=== PATIENT | male | born 1950 | race Caucasian/White ===

== ENCOUNTER 2020-11-22 07:10 | Emergency (ER) | payer OTHER ==
--- NOTE | 2020-11-22 07:44 | EDPHYS ---
Physician Documentation [facility] Name: Martinez Stoner Age: 69 yrs Sex: Male : 1950 Arrival Date: 11/22/2020 Time: 07:12 Bed 28 Private MD: ZBIGNIEW Physician Byron Lynne HPI: 11/22 07:35 This 69 yrs old Male presents to ER via Ambulatory with complaints of Wound jr8 Infection. 07:35 This is a 69-year-old male patient that presented to the emergency room for a draining jr8 wound to the right triceps region. Patient stated that he has had masslike structure to this area for several months. Started as a small nodule and has increased inside. Stated that every once in a while it will inflamed and drain. Stated that it started to drain again while at work and wanted it to be evaluated.. Onset: The symptoms/episode began/occurred gradually. Severity of symptoms: At their worst the symptoms were mild in the emergency department the symptoms are unchanged. The patient has experienced similar episodes in the past, a few times. The patient has not recently seen a physician. Historical: - Allergies: 07:14 Codeine; ll1 - PMHx: 07:14 Hepatitis; Hypertension; ll1 - Immunization history:: Adult Immunizations up to date, Client reports having NOT received the Covid vaccine. Flu vaccine is up to date. - Social history:: Smoking status: Patient denies any tobacco usage or history of. ROS: 07:35 Eyes: Negative for injury, pain, redness, and discharge, ENT: Negative for injury, jr8 pain, and discharge, Neck: Negative for injury, pain, and swelling, Cardiovascular: Negative for chest pain, palpitations, and edema, Respiratory: Negative for shortness of breath, cough, wheezing, and pleuritic chest pain, Abdomen/GI: Negative for abdominal pain, nausea, vomiting, diarrhea, and constipation, Back: Negative for injury and pain, MS/Extremity: Negative for injury and deformity, Neuro: Negative for headache, weakness, numbness, tingling, and seizure. 07:35 Skin: Positive for Erythematic swollen region right tricep. Exam: 07:38 Constitutional: This is a well developed, well nourished patient who is awake, alert, jr8 and in no acute distress. Cardiovascular: Regular rate and rhythm with a normal S1 and S2. No gallops, murmurs, or rubs. Normal PMI, no JVD. No pulse deficits. Respiratory: Lungs have equal breath sounds bilaterally, clear to auscultation and percussion. No rales, rhonchi or wheezes noted. No increased work of breathing, no retractions or nasal flaring. MS/ Extremity: Pulses equal, no cyanosis. Neurovascular intact. Full, normal range of motion. Neuro: Awake and alert, GCS 15, oriented to person, place, time, and situation. Cranial nerves II-XII grossly intact. Motor strength 5/5 in all extremities. Sensory grossly intact. Cerebellar exam normal. Normal gait. 07:38 Skin: Patient has slightly erythematic and ecchymotic masslike structure to the right triceps region with active mild draining. Serosanguineous in nature. No tenderness to palpation. No surrounding cellulitis noted.. Vital Signs: 07:19 BP 156 / 103; Pulse 74; Resp 18; Temp 97.6; Pulse Ox 94% on R/A; Weight 94.35 kg; ll1 Height 6 ft. 0 in. (182.88 cm); Pain 0/10; 08:01 BP 147 / 90; ll1 07:19 Body Mass Index 28.21 (94.35 kg, 182.88 cm) ll1 MDM: 07:15 Patient medically screened. [facility] 07:38 Data reviewed: vital signs, nurses notes. 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 ED course: Discussed with patient that this is not a typical abscess. That he has had this for several months and keeps getting inflamed. Most likely cystic in nature but cannot rule out neoplasm. Recommended follow-up with dermatology or general surgery for further evaluation. In the meantime we will put on antibiotics.. Administered Medications: No medications were administered Disposition: 11/23 07:27 Co-signature as Attending Physician, Byron Lynne MD I agree with the assessment and ty plan of care. Disposition Summary: 11/22/20 07:43 Discharge Ordered Location: Home jr8 Problem: new jr8 Symptoms: have improved jr8 Condition: Stable jr8 Diagnosis - Local infection of the skin and subcutaneous tissue, unspecified jr8 Followup: jr8 - With: Private Physician - When: 2 - 3 days - Reason: Recheck today's complaints, Continuance of care, Re-evaluation by your physician Discharge Instructions: - Discharge Summary Sheet jr8 - Skin Abscess jr8 Forms: - Medication Reconciliation Form jr8 - Thank You Letter jr8 - Work release form bd - Antibiotic Education jr8 - Prescription Opioid Use jr8 Prescriptions: - Bactrim DS 800-160 mg Oral Tablet - take 1 tablet by ORAL route every 12 hours for 7 days; 14 tablet; Refills: 0, jr8 Product Selection Permitted Signatures: Byron Lynne MD MD cha Roszak, Josh, PA PA jr8 Arley Day RN RN ll1
--- NOTE | 2020-11-22 07:44 | ER ---
Nurse's Notes [facility] Name: Martinez Stoner Age: 69 yrs Sex: Male : 1950 Arrival Date: 11/22/2020 Time: 07:12 Bed 28 Private MD: Diagnosis: Local infection of the skin and subcutaneous tissue, unspecified Presentation: 11/22 07:14 Ebola Screen: Patient denies travel to an Ebola-affected area in the 21 days before ll1 illness onset. No symptoms or risks identified at this time. Risk Assessment: Do you want to hurt yourself or someone else? Patient reports no desire to harm self or others. 07:14 Method Of Arrival: Ambulatory ll1 07:19 Chief complaint: Patient states: Abscess to R FA for 2 weeks, ongoing problem off/on ll1 for 1 year. No fever. Draining bloody pus. Coronavirus screen: Client denies travel out of the [place] in the last 14 days. At this time, the client does not indicate any symptoms associated with coronavirus-19. Initial Sepsis Screen: Does the patient meet any 2 criteria? No. Patient's initial sepsis screen is negative. Does the patient have a suspected source of infection? Yes: Skin breakdown/wound. Onset of symptoms was November 09, 2020. 07:19 Acuity: SHYLA 4 ll1 Triage Assessment: 08:01 General: Appears in no apparent distress. Behavior is calm, cooperative, appropriate ll1 for age. Pain: Denies pain. Derm: Abscess located on Right arm is dime sized, has purulent drainage, is raised, Reports sore R arm. Musculoskeletal: Circulation, motion, and sensation intact. Capillary refill < 3 seconds, Range of motion: intact in all extremities. Historical: - Allergies: 07:14 Codeine; ll1 - PMHx: 07:14 Hepatitis; Hypertension; ll1 - Immunization history:: Adult Immunizations up to date, Client reports having NOT received the Covid vaccine. Flu vaccine is up to date. - Social history:: Smoking status: Patient denies any tobacco usage or history of. Screenin:22 Abuse screen: Denies threats or abuse. Nutritional screening: No deficits noted. ll1 Tuberculosis screening: No symptoms or risk factors identified. 08:02 Fall Risk None identified. Total Cobb Fall Scale indicates No Risk (0-24 pts). ll1 Assessment: 08:03 Reassessment: No changes from previously documented assessment. Patient and/or family ll1 updated on plan of care and expected duration. Pain level reassessed. Patient is alert, oriented x 3, equal unlabored respirations, skin warm/dry/pink. Vital Signs: 07:19 BP 156 / 103; Pulse 74; Resp 18; Temp 97.6; Pulse Ox 94% on R/A; Weight 94.35 kg; ll1 Height 6 ft. 0 in. (182.88 cm); Pain 0/10; 08:01 BP 147 / 90; ll1 07:19 Body Mass Index 28.21 (94.35 kg, 182.88 cm) ll1 ED Course: 07:12 Patient arrived in ED. wm 07:14 Arley Day RN is Primary Nurse. ll1 07:14 Arm band placed on Patient placed in an exam room, on a stretcher. ll1 07:15 [facility] Handley [facility]. jr8 07:15 Byron Lynne MD is Attending Physician. jr8 07:21 Triage completed. ll1 07:22 Patient has correct armband on for positive identification. Bed in low position. Call ll1 light in reach. Side rails up X 1. Cardiac monitoring not applicable on this patient. 08:02 No provider procedures requiring assistance completed. Patient did not have IV access ll1 during this emergency room visit. 08:03 Wound care: to abscess located on right arm was cleaned with Hibiclens, dressed with ll1 band aid, Patient tolerated well. Administered Medications: No medications were administered Outcome: 07:43 Discharge ordered by . jennifer 08:02 Discharged to home ambulatory. ll1 08:02 Condition: stable 08:02 Discharge instructions given to patient, Instructed on discharge instructions, follow up and referral plans. medication usage, wound care, Demonstrated understanding of instructions, follow-up care, medications, wound care, Prescriptions given X 1. 08:03 Patient left the ED. 1 Signatures: Remington Handley PA PA jr8 Arley Day, RN RN 1 Lexi Davis Corrections: (The following items were deleted from the chart) 07:22 07:19 BP 156 / 103; Pulse 74bpm; Resp 18bpm; Pulse Ox 92% RA; Temp 97.6F; 94.35 kg; ll1 Height 6 ft. 0 in.; BMI: 28.2; Pain 0/10; ll1
[2020-11-22 08:09] VITALS: TEMP 97.6; O2SAT 94
[2020-11-22 08:10] VITALS: BP 147/90
== END 2020-11-22 08:03 | disposition home or self-care (01) ==
LOC: ER 07:10
DX: L08.9 Local infection of the skin and subcutaneous tissue, unspecified (principal); I10 Essential (primary) hypertension; Z88.5 Allergy status to narcotic agent
CPT/HCPCS: 99283

== ENCOUNTER 2021-01-01 10:12 | Emergency (ER) | payer OTHER ==
[2021-01-01] MEDS ORDERED: ACETAMINOPHEN 500 MG TAB ONE (12:01)
[2021-01-01 14:04] LABS: SARS-COV-2 RT PCR POSITIVE (NEGATIVE)
--- NOTE | 2021-01-01 14:07 | EDPHYS ---
Physician Documentation [facility] Name: Martinez Stoner Age: 70 yrs Sex: Male : 1950 Arrival Date: 01/01/2021 Time: 10:13 Bed 20 Private MD: ED Physician Zane Marquez HPI: 01/01 11:32 This 70 yrs old Male presents to ER via Ambulatory with complaints of r/o kb covid. 11:32 The patient or guardian reports cough, that is intermittent, described as mild, flu kb symptoms, low-grade fever, myalgias, no appetite. Onset: The symptoms/episode began/occurred 3 day(s) ago. Severity of symptoms: At their worst the symptoms were moderate, in the emergency department the symptoms are unchanged. Modifying factors: The symptoms are alleviated by nothing, the symptoms are aggravated by nothing. Associated signs and symptoms: Pertinent positives: fever, sore throat. The patient has not experienced similar symptoms in the past. The patient has not recently seen a physician. Pt states everyone in his household has covid and he developed symptoms on 12/29/20. States he came to get tested because he needs it for work. Historical: - Allergies: 11:18 Codeine; iw - PMHx: 11:18 Hepatitis; Hypertension; iw - Immunization history:: Client reports having NOT received the Covid vaccine. - Social history:: Smoking status: Patient denies any tobacco usage or history of. ROS: 11:29 Abdomen/GI: Negative for abdominal pain, nausea, vomiting, diarrhea, and constipation. kb 11:29 Constitutional: Positive for body aches, chills, fatigue, fever, malaise, poor PO intake. 11:29 Respiratory: Positive for cough. 11:29 All other systems are negative. Exam: 11:29 Constitutional: This is a well developed, well nourished patient who is awake, alert, kb and in no acute distress. Head/Face: Normocephalic, atraumatic. ENT: Moist Mucous membranes Cardiovascular: Regular rate and rhythm with a normal S1 and S2. No gallops, murmurs, or rubs. No pulse deficits. Respiratory: Respirations even and unlabored. No increased work of breathing, no retractions or nasal flaring. Skin: Warm, dry with normal turgor. Normal color. MS/ Extremity: Pulses equal, no cyanosis. Neurovascular intact. Full, normal range of motion. Neuro: Awake and alert, GCS 15, oriented to person, place, time, and situation. Moves all extremities. Normal gait. Psych: Awake, alert, with orientation to person, place and time. Behavior, mood, and affect are within normal limits. Vital Signs: 11:17 BP 122 / 85; Pulse 95; Resp 20 S; Temp 100.4; Pulse Ox 98% on R/A; iw 12:30 BP 127 / 79; Pulse 93; Resp 17; Temp 98.9; Pulse Ox 99% ; bp 14:30 BP 131 / 75; Pulse 87; Resp 17; Temp 99.1; Pulse Ox 97% ; bp MDM: 11:23 Patient medically screened. kb 11:28 Data reviewed: vital signs, nurses notes. Data interpreted: Pulse oximetry: on room air kb is 98 %. Interpretation: normal. 14:06 Counseling: I had a detailed discussion with the patient and/or guardian regarding: the kb historical points, exam findings, and any diagnostic results supporting the discharge/admit diagnosis, lab results, the need for outpatient follow up, a family practitioner, to return to the emergency department if symptoms worsen or persist or if there are any questions or concerns that arise at home. 01/01 14:05 Order name: COVID-19/FLU A+B; Complete Time: 14:06 EDMS Administered Medications: 11:45 Drug: Tylenol 1000 mg Route: PO; bp Disposition: 15:22 Co-signature as Attending Physician, Zane Marquez MD I agree with the assessment and rn plan of care. Attestation: The patient's history, exam findings, diagnostics, and a summary of any interventions or procedures was reviewed in detail with Vikki MEYERS. Disposition Summary: 01/01/21 14:06 Discharge Ordered Location: Home kb Condition: Stable kb Diagnosis - Coronavirus infection, unspecified kb Followup: kb - With: Emergency Department - When: As needed - Reason: Worsening of condition Followup: kb - With: Private Physician - When: 2 - 3 days - Reason: Recheck today's complaints, Continuance of care, Re-evaluation by your physician Discharge Instructions: - Discharge Summary Sheet kb - COVID-19 kb - COVID-19 Frequently Asked Questions kb - 10 Things You Can Do to Manage Your COVID-19 Symptoms at Home - [facility] kb Forms: - Medication Reconciliation Form kb - Thank You Letter kb - Antibiotic Education kb - Prescription Opioid Use kb Signatures: Dispatcher [employer] EDMS Vikki Conway FNP-C FNP-Gena Haque, RN RN Zane Olea MD MD rn Peltier, Brian, RN RN bp Corrections: (The following items were deleted from the chart) 11:59 11:19 Influenza Screen (A \T\ B)+BA.LAB.BRZ ordered. EDMS EDMS 12:01 11:19 CORONAVIRUS+MR.LAB.BRZ ordered. EDMS EDMS
--- NOTE | 2021-01-01 14:07 | ER ---
Nurse's Notes [facility] Name: Martinez Stoner Age: 70 yrs Sex: Male : 1950 Arrival Date: 01/01/2021 Time: 10:13 Bed 20 Private MD: Diagnosis: Coronavirus infection, unspecified Presentation: 01/01 11:17 Chief complaint: Patient states: cough, chills, SOB since Dec 29. Coronavirus screen: iw cough unrelated to allergies, fatigue, muscle pain. Ebola Screen: Patient negative for fever greater than or equal to 101.5 degrees Fahrenheit, and additional compatible Ebola Virus Disease symptoms Patient denies exposure to infectious person. Patient denies travel to an Ebola-affected area in the 21 days before illness onset. No symptoms or risks identified at this time. Initial Sepsis Screen: Does the patient meet any 2 criteria? No. Patient's initial sepsis screen is negative. Does the patient have a suspected source of infection? No. Patient's initial sepsis screen is negative. Risk Assessment: Do you want to hurt yourself or someone else? Patient reports no desire to harm self or others. Onset of symptoms was December 29, 2020. 11:17 Method Of Arrival: Ambulatory iw 11:17 Acuity: SHYLA 3 iw Triage Assessment: 11:30 General: Appears in no apparent distress. uncomfortable, ill, Behavior is calm, bp cooperative, appropriate for age. Pain: Denies pain. EENT: Reports nasal congestion. Neuro: Level of Consciousness is awake, alert, obeys commands, Oriented to Appropriate for age. Cardiovascular: Rhythm is sinus rhythm. Respiratory: Reports shortness of breath cough that is. GI: No signs and/or symptoms were reported involving the gastrointestinal system. : No signs and/or symptoms were reported regarding the genitourinary system. Derm: No deficits noted. Musculoskeletal: No deficits noted. Historical: - Allergies: 11:18 Codeine; iw - PMHx: 11:18 Hepatitis; Hypertension; iw - Immunization history:: Client reports having NOT received the Covid vaccine. - Social history:: Smoking status: Patient denies any tobacco usage or history of. Screenin:00 Abuse screen: Denies threats or abuse. Denies injuries from another. Nutritional bp screening: No deficits noted. Tuberculosis screening: No symptoms or risk factors identified. Fall Risk None identified. Assessment: 11:30 General: SEE TRIAGE NOTE. bp 12:30 Reassessment: No changes from previously documented assessment. Pain: Denies pain. bp 13:30 Reassessment: ALL CURRENT ORDERS COMPLETE. DISPO PENDING. Derm: No deficits noted. bp 14:30 Reassessment: PT D/C HOME AMBULATORY, DX WITH SARS-COVID. bp Vital Signs: 11:17 BP 122 / 85; Pulse 95; Resp 20 S; Temp 100.4; Pulse Ox 98% on R/A; iw 12:30 BP 127 / 79; Pulse 93; Resp 17; Temp 98.9; Pulse Ox 99% ; bp 14:30 BP 131 / 75; Pulse 87; Resp 17; Temp 99.1; Pulse Ox 97% ; bp ED Course: 10:13 Patient arrived in ED. as 11:15 Vikki Conway F[facility]-C [facility] kb 11:15 Jose Melendez MD is Attending Physician. kb 11:18 Triage completed. iw 11:18 Arm band placed on. iw 11:19 Ranjan De La Cruz, RN is Primary Nurse. bp 11:31 Attending Physician role handed off by Jose Melendez MD rn 11:31 Zane Marquez MD is Attending Physician. rn 12:00 Patient has correct armband on for positive identification. Bed in low position. Call bp light in reach. Side rails up X2. 14:20 Patient did not have IV access during this emergency room visit. bp 14:42 No provider procedures requiring assistance completed. bp Administered Medications: 11:45 Drug: Tylenol 1000 mg Route: PO; bp Outcome: 14:06 Discharge ordered by . kb 14:20 Discharged to home ambulatory. bp 14:20 Condition: stable 14:20 Discharge instructions given to patient, Instructed on discharge instructions, follow up and referral plans. Demonstrated understanding of instructions, follow-up care. 14:58 Patient left the ED. bp Signatures: Vikki Conway FNP-C FNP-Tracy Couch Irene, RN RN iw Zane Marquez MD MD rn Peltier, Brian, RN RN bp
[2021-01-01 15:11] VITALS: BP 131/75; TEMP 99.1; O2SAT 97
== END 2021-01-01 14:58 | disposition home or self-care (01) ==
LOC: ER 10:12
DX: U07.1 COVID-19 (principal); I10 Essential (primary) hypertension; Z88.5 Allergy status to narcotic agent
CPT/HCPCS: 0240U; 99284

== ENCOUNTER 2021-01-05 12:56 | Inpatient (IN) | payer OTHER ==
--- NOTE | 2021-01-05 14:15 | RAD REPORT ---
EXAM DESCRIPTION: Lacie Single View01/05/2021 2:03 pm CLINICAL HISTORY: sob COMPARISON: 2016 FINDINGS: A few areas of scarring or subsegmental atelectasis are present within the left lung base. Right lung appears clear. The heart is mildly enlarged. Postsurgical changes involve the chest. IMPRESSION: No acute abnormalities displayed
[2021-01-05 14:47] LABS: Absolute Lymphocytes (CBC) 0.9 K/uL (0.7-4.9); Basophils % 0.2 % (0-1.3); Lymphocytes % 12.1 % (15.3-44.8); MPV 7.8 fL (7.6-11.3)
[2021-01-05 14:48] LABS: Protime INR 1.13
[2021-01-05 15:08] LABS: Albumin 3.2 g/dL (3.4-5.0); Bilirubin Direct 0.1 mg/dL (0-0.2); Bilirubin Total 0.6 mg/dL (0.2-1.0); C-Reactive Protein 50.6 mg/L (<3.00); Ferritin 1916.3 ng/mL (26-388); Protein, Total 7.5 g/dL (6.4-8.2); Troponin (Emerg Dept Use Only) 0.02 ng/mL (0.0-0.045)
[2021-01-05 15:13] LABS: Magnesium 2.3 mg/dL (1.8-2.4); Potassium 4.1 mmol/L (3.5-5.1)
--- NOTE | 2021-01-05 16:22 | RAD REPORT ---
EXAM DESCRIPTION: CT - Chest For Pe Angio - 01/05/2021 3:59 pm CLINICAL HISTORY: sob COMPARISON: 2014 CT chest TECHNIQUE: Dynamically enhanced axial 3 mm thick images of the chest were obtained during administra tion of <100> mL Isovue 370 IV contrast. Coronal and oblique reconstruction images were generated and reviewed. Exam utilizes a protocol for optimal evaluation of pulmonary arterial tree. Maximum intensity projections 3D imaging was utilized All CT scans are performed using dose optimization technique as appropriate and may include automated exposure control or mA/KV adjustment according to patient size. FINDINGS: A pulmonary embolus is not seen. A thoracic aortic aneurysm is not noted. A pleural effusion is not seen. A pericardial effusion is not seen. Mild to moderate bilateral ground-glass opacities within the lungs IMPRESSION: Negative for a pulmonary embolism. Mild to moderate bilateral ground-glass opacities within the lungs can be seen with Covid pneumonia
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
--- NOTE | 2021-01-05 16:25 | ER ---
Nurse's Notes [facility] Name: Martinez Stoner Age: 70 yrs Sex: Male : 1950 Arrival Date: 01/05/2021 Time: 13:18 Bed 19 Private MD: Diagnosis: Coronavirus infection, unspecified-Hypoxia Presentation: 01/05 13:24 Chief complaint:. Coronavirus screen: Client presents with at least one sign or symptom tr6 that may indicate coronavirus-19. Standard/surgical mask placed on the client. Provider contacted for isolation considerations. Client reports previous positive COVID test result. Ebola Screen: No symptoms or risks identified at this time. Initial Sepsis Screen: Does the patient meet any 2 criteria? RR > 20 per min. Temp <36.0*C (96.8*F)) or > 38.3*C (100.9*F). Yes Does the patient have a suspected source of infection? Yes: Other: +covid. Risk Assessment: Do you want to hurt yourself or someone else? Patient reports no desire to harm self or others. 13:24 Method Of Arrival: EMS: [facility] tr6 14:05 Chief complaint: EMS states: SOB, dizziness, fever, and weakness since this morning. pt tr6 was found to have 102.8 fever, 70s on RA, and labored breathing. pt received 600 NS, 125 Solumedrol, 1g tylenol, and 2.5 mg albuterol en route. On arrival to ED, pt on 6L sating 88%. pt reports +COVID. Onset of symptoms was January 05, 2021. 14:05 Acuity: SHYLA 2 tr6 Triage Assessment: 14:10 General: Appears distressed, obese, well developed, well nourished, Behavior is calm, tr6 cooperative, appropriate for age, Reports fever for feeling ill for. Pain: Denies pain. EENT: No deficits noted. Neuro: No deficits noted. Cardiovascular: Denies chest pain, Rhythm is sinus tachycardia. Respiratory: Respiratory effort is labored, with nasal flaring, Respiratory pattern is tachypnea. Respiratory: Reports shortness of breath at rest on exertion labored breathing. GI: No deficits noted. : No deficits noted. Derm: Skin is diaphoretic, moist. Musculoskeletal: No deficits noted. Historical: - Allergies: 14:07 Codeine; tr6 - PMHx: 14:07 Hepatitis; Hypertension; aortic anuerysm; tr6 - Immunization history:: Client reports having NOT received the Covid vaccine. - Social history:: Smoking status: Patient denies any tobacco usage or history of. Screenin:23 Abuse screen: Denies threats or abuse. Denies injuries from another. Nutritional tr6 screening: No deficits noted. Tuberculosis screening: No symptoms or risk factors identified. Fall Risk None identified. Assessment: 14:18 Reassessment: pt proned and placed on 5L NC, sating 94%. tr6 Vital Signs: 14:05 BP 131 / 78; Pulse 95; Resp 34; Temp 102.8; Pulse Ox 88% on 6 lpm NC; tr6 15:00 BP 128 / 83; Pulse 82; Resp 24; Temp 97.9(O); Pulse Ox 92% on 5 lpm NC; tr6 ED Course: 13:18 Patient arrived in ED. iw 13:22 Paco Reynoso PA is PHCP. jmm 13:22 Alex Oliveira MD is Attending Physician. jmm 13:23 Serena Iraheta RN is Primary Nurse. tr6 13:23 Patient has correct armband on for positive identification. Placed in gown. Bed in low tr6 position. Call light in reach. Side rails up X2. panel monitor on. Pulse ox on. NIBP on. Door closed. Noise minimized. Visitors limited. Lights dimmed. Moved to private room. Warm blanket given. Diet: Patient is NPO. 13:23 No provider procedures requiring assistance completed. Maintain EMS IV. Dressing tr6 intact. Good blood return noted. Site clean \T\ dry. Gauge \T\ site: 20 L W. Flushed. 13:25 Patient placed in an exam room, on a stretcher, on oxygen. EKG completed in triage. tr6 Results shown to MD. Antipyretics given from triage as ordered by an ER provider. 14:02 XRAY Chest (1 view) In Process Unspecified. EDMS 14:07 Triage completed. tr6 14:14 Inserted saline lock: 18 gauge in right wrist, using aseptic technique. Blood collected.tr6 15:58 CT Chest For PE Angio In Process Unspecified. EDMS 16:25 Marquez, Rafael, MD is Hospitalizing Provider. jmm 18:02 Patient admitted, IV remains in place. tr6 Administered Medications: No medications were administered Outcome: 16:25 Decision to Hospitalize by Provider. jmm 18:01 Admitted to Tele accompanied by tech, via stretcher, room 415, with oxygen, Report tr6 called to kevon 18:01 Condition: stable 18:01 Instructed on the need for admit. 18:10 Patient left the ED. tr6 Signatures: Dispatcher [employer] EDMS Paco Reynoso PA PA Gena Newell, RN RN iw Serena Iraheta RN RN tr6 Corrections: (The following items were deleted from the chart) 14:18 14:05 Chief complaint: EMS states: Respiratory distress post covid positive tr6 tr6
--- NOTE | 2021-01-05 16:26 | EDPHYS ---
Physician Documentation [facility] Name: Martinez Stoner Age: 70 yrs Sex: Male : 1950 Arrival Date: 01/05/2021 Time: 13:18 Bed 19 Private MD: ED Physician Alex Oliveira HPI: 01/05 16:23 This 70 yrs old Male presents to ER via EMS with complaints of shortness of jmm breath. 16:23 Onset: The symptoms/episode began/occurred gradually, 10 day(s) ago. Duration: The jmm symptoms are continuous. The patient's shortness of breath is aggravated by nothing, is alleviated by nothing. Associated signs and symptoms: Pertinent positives: non-productive cough, fever. It is unknown whether or not the patient has had similar symptoms in the past. The patient has been recently seen at the [facility] Emergency Department, last week. Historical: - Allergies: 14:07 Codeine; tr6 - PMHx: 14:07 Hepatitis; Hypertension; aortic anuerysm; tr6 - Immunization history:: Client reports having NOT received the Covid vaccine. - Social history:: Smoking status: Patient denies any tobacco usage or history of. ROS: 16:23 Constitutional: Positive for fever. jmm 16:23 Respiratory: Positive for cough, shortness of breath. 16:23 All other systems are negative. Exam: 16:23 Constitutional: This is a well developed, well nourished patient who is awake, alert, jmm and in no acute distress. Head/Face: atraumatic. Eyes: EOMI, no conjunctival erythema appreciated ENT: Moist Mucus Membranes Neck: Trachea midline, Supple Chest/axilla: Normal chest wall appearance and motion. Cardiovascular: Regular rate and rhythm. No edema appreciated Respiratory: Normal respirations, no respiratory distress appreciated Abdomen/GI: Non distended, soft Back: Normal ROM Skin: General appearance color normal 16:23 Musculoskeletal/extremity: ROM: intact in all extremities. 16:23 Skin: Appearance: Color: normal in color. 16:23 Neuro: Motor: is normal. Vital Signs: 14:05 BP 131 / 78; Pulse 95; Resp 34; Temp 102.8; Pulse Ox 88% on 6 lpm NC; tr6 15:00 BP 128 / 83; Pulse 82; Resp 24; Temp 97.9(O); Pulse Ox 92% on 5 lpm NC; tr6 MDM: 13:54 Patient medically screened. [facility] 16:24 Data reviewed: vital signs, nurses notes. Counseling: I had a detailed discussion with saul the patient and/or guardian regarding: the historical points, exam findings, and any diagnostic results supporting the discharge/admit diagnosis, lab results, radiology results, the need for further work-up and treatment in the hospital. ED course: I discussed the patient with Sruthi Cifuentes whom accepted the patient to Dr. Marquez's service. . 01/05 13:31 Order name: Basic Metabolic Panel; Complete Time: 15:14 [facility] 01/05 13:31 Order name: CBC with Diff; Complete Time: 15:14 [facility] 01/05 13:31 Order name: LFT's; Complete Time: 15:14 [facility] 01/05 13:31 Order name: Magnesium; Complete Time: 15:14 [facility] 01/05 13:31 Order name: NT PRO-BNP; Complete Time: 15:14 [facility] 01/05 13:31 Order name: PT-INR; Complete Time: 15:14 [facility] 01/05 13:31 Order name: Troponin (emerg Dept Use Only); Complete Time: 15:14 [facility] 01/05 13:32 Order name: Lactate; Complete Time: 15:14 [facility] 01/05 13:32 Order name: Procalcitonin; Complete Time: 16:43 [facility] 01/05 13:32 Order name: Blood Culture Adult (2) [facility] 01/05 13:32 Order name: CRP; Complete Time: 15:14 [facility] 01/05 13:32 Order name: Ferritin; Complete Time: 15:14 [facility] 01/05 16:47 Order name: SARS-COV-2 RT PCR; Complete Time: 16:54 [facility] 01/05 13:31 Order name: XRAY Chest (1 view); Complete Time: 16:21 [facility] 01/05 13:31 Order name: EKG; Complete Time: 13:31 [facility] 01/05 13:31 Order name: Cardiac monitoring; Complete Time: 15:55 [facility] 01/05 13:31 Order name: EKG - Nurse/Tech; Complete Time: 15:55 [facility] 01/05 13:31 Order name: IV Saline Lock; Complete Time: 15:55 [facility] 01/05 13:31 Order name: Labs collected and sent; Complete Time: 15:55 [facility] 01/05 13:31 Order name: O2 Per Protocol; Complete Time: 15:55 [facility] 01/05 13:31 Order name: O2 Sat Monitoring; Complete Time: 15:55 [facility] 01/05 15:23 Order name: CT Chest For PE Angio; Complete Time: 16:26 [facility] 01/05 16:47 Order name: CONS Physician Consult EDMS Administered Medications: No medications were administered Disposition: 19:28 Co-signature as Attending Physician, Alex Oliveira MD I agree with the assessment and kdr plan of care. Disposition Summary: 01/05/21 16:25 Hospitalization Ordered Hospitalization Status: Inpatient Admission [facility] Provider: Rafael Marquez Location: Telemetry/[facility]Sur (Inpatient) [facility] Condition: Stable jm Problem: new jmm Symptoms: are unchanged [facility] Bed/Room Type: Standard [facility] Room Assignment: 415(01/05/21 17:34) eb Diagnosis - Coronavirus infection, unspecified - Hypoxia jm Forms: - Medication Reconciliation Form jmm - SBAR form [facility] Signatures: Dispatcher [employer] EDMS Alex Oliveira MD MD kdr Mickail, Joel, PA PA [facility] Maribel Maria Tiffany, RN RN tr6 Corrections: (The following items were deleted from the chart) 15:43 13:31 CORONAVIRUS+MRTameraLAB.BRZ ordered. EDNC EDNC 17:34 16:25 [facility] eb
[2021-01-05] MEDS ORDERED: ACETAMINOPHEN 500 MG TAB PO PRN (18:16)
--- NOTE | 2021-01-05 18:21 | EKG ---
Test Date: 2021-01-05 Test Time: 13:25:01 Smasher: CARLO MEASUREMENT RESULTS: Intervals: Rate: 101 SC: 152 QRSD: 94 QT: 354 QTc: 459 [place]: P: 2 SC: 152 QRS: -9 T: 83 INTERPRETIVE STATEMENTS: Sinus tachycardia Left ventricular hypertrophy with repolarization abnormality Abnormal ECG Compared to ECG 08/12/2015 13:00:17 Sinus rhythm no longer present Incomplete right bundle-branch block no longer present Electronically Signed On 01-05-21 18:20:42 CDT by Fuentes Gordillo
[2021-01-05] MEDS: ASCORBIC ACID 500 MG TABLET PO SCH ×2 (18:40→20:20)
[2021-01-05] MEDS: ENOXAPARIN 40 MG/0.4 ML SQ SCH (19:00)
[2021-01-05] MEDS: METHYLPREDNISOLONE 125 MG INJ IV SCH (20:19)
[2021-01-05] MEDS: THIAMINE HCL 100 MG TABLET PO SCH (20:20)
[2021-01-05] MEDS: FAMOTIDINE 20 MG TAB PO SCH (20:20)
[2021-01-05] MEDS: MELATONIN 5 MG TABLET PO SCH (20:20)
[2021-01-05] MEDS ORDERED: METHYLPRED NA SUC 60 MG in NA CHLORIDE 0.9% 100 ML IV SCH (21:00)
[2021-01-06 05:04] LABS: Albumin 3.3 g/dL (3.4-5.0); Bilirubin Total 0.5 mg/dL (0.2-1.0); Ferritin 2169.7 ng/mL (26-388); Potassium 3.7 mmol/L (3.5-5.1); Protein, Total 7.9 g/dL (6.4-8.2); Thyroid Stimulating Hormone 0.244 uIU/mL (0.360-3.740)
--- NOTE | 2021-01-06 06:22 | P.PN ---
Subjective Date of Service: 01/06/21 Primary Care Provider: none Chief Complaint: hypoxia, covid pneumonia Subjective: Improving (Overall he feels a little bit better, but feels his breathing is about the same, remains on 15 L nonrebreather. He had more of an appetite today and able to eat breakfast.) Review of Systems 10-point ROS is otherwise unremarkable Physical Examination - Vital Signs Temperature: 97.1 F Blood Pressure: 153/83 Pulse: 71 Respirations: 18 Pulse Ox (%): 96 - Studies Laboratory Data (last 24 hrs) 01/05/21 13:36: PT 13.0 H, INR 1.13 01/05/21 13:36: WBC 7.50, Hgb 14.1, Hct 41.0, Plt Count 161 01/05/21 13:36: Sodium 134 L, Potassium 4.1, BUN 25 H, Creatinine 1.39 H, Glucose 116 H, Magnesium 2.3, Total Bilirubin 0.6, AST 112 H, ALT 68, Alkaline Phosphatase 43 L Assessment & Plan Physician Review Additional Text: Physical exam GEN: Alert, oriented, NAD HEENT: Normal conjunctiva, sclera anicteric CV: Regular rate and rhythm, no edema Pulm: Nonlabored respiration on 15 L nonrebreather ABD: Soft, nontender, nondistended MSK: No joint tenderness Integumentary: No rashes Neuro: Normal speech, normal affect Problem List acute hypoxic respiratory failure secondary to covid-19 pneumonia HTN bipolar disorder CKD 3 Continue IV steroids, vitamin supplementation, oxygen supplementation Pulmonology consulted Inflammatory markers significantly elevated, CRP less than 75, would not qualify for baricitinib Patient tolerating diet Renal function appears at baseline DVT prophylaxis CTA negative for PE Code: Full Dispo: Anticipate DC home in 4-5 days Time Spent Managing Pts Care (In Minutes): 35
[2021-01-06] MEDS: ASCORBIC ACID 500 MG TABLET PO SCH ×3 (09:00→20:41)
[2021-01-06] MEDS: METHYLPREDNISOLONE 125 MG INJ IV SCH ×3 (09:00→20:41)
[2021-01-06] MEDS: THIAMINE HCL 100 MG TABLET PO SCH ×2 (09:00→20:41)
[2021-01-06] MEDS: ZINC SULFATE 220 MG CAP PO SCH (09:00)
[2021-01-06] MEDS: VITAMIN D 1000 UNIT TAB PO SCH (09:00)
[2021-01-06] MEDS: FAMOTIDINE 20 MG TAB PO SCH ×2 (09:00→20:41)
[2021-01-06] MEDS: ENOXAPARIN 40 MG/0.4 ML SQ SCH (09:00)
[2021-01-06] MEDS: RIVAROXABAN 10 MG TABLET PO SCH (17:28)
[2021-01-06 18:43] LABS: Urine Appearance CLEAR (Clear); Urine Bilirubin NEGATIVE (Negative); Urine Blood TRACE (Negative); Urine Color YELLOW (Yellow); Urine Glucose NEGATIVE (Negative); Urine Protein 2+ (Negative); Urine Specific Gravity 1.025 (1.005-1.030); Urine Urobilinogen 0.2 mg/dL (0.2-1.0)
[2021-01-06 18:58] LABS: Urine Microscopic Reflex ORDER UMIC
[2021-01-06 19:58] LABS: Urine Amorphous Sediment 1+ /HPF (NONE SEEN); Urine Bacteria <20 /HPF (NONE SEEN); Urine RBC <5 /HPF (NONE SEEN)
[2021-01-06] MEDS: MELATONIN 5 MG TABLET PO SCH (20:41)
[2021-01-06] MEDS: HYDROCODONE/CHLORPHEN 5 ML/OSYR PO PRN (20:41)
--- NOTE | 2021-01-07 06:17 | P.PN ---
Subjective Date of Service: 01/07/21 Primary Care Provider: none Chief Complaint: hypoxia, covid pneumonia Subjective: Improving (feels breathing is slightly better this morning, oxygen requirement remains the same, ambulated to bathroom yesterday. good appetite, no diarrhea) Review of Systems 10-point ROS is otherwise unremarkable Physical Examination - Vital Signs Temperature: 97.8 F Blood Pressure: 117/64 Pulse: 66 Respirations: 18 Pulse Ox (%): 93 Assessment & Plan Physician Review Additional Text: Physical exam GEN: Alert, oriented, NAD HEENT: Normal conjunctiva, sclera anicteric CV: Regular rate and rhythm, no edema Pulm: Nonlabored respiration on 15 L nonrebreather ABD: Soft, nontender, nondistended Neuro: Normal speech, normal affect, moves all extremities Problem List acute hypoxic respiratory failure secondary to covid-19 pneumonia HTN bipolar disorder CKD 3 Continue IV steroids, vitamin supplementation, oxygen supplementation Pulmonology consulted Inflammatory markers significantly elevated but now improving Patient tolerating diet renal function improved, now at baseline DVT prophylaxis CTA negative for PE pt to try and get his home bipolar meds, non-formulary here Code: Full Dispo: Anticipate DC home in ~4-5 days Time Spent Managing Pts Care (In Minutes): 35
[2021-01-07 06:53] LABS: Bilirubin Total 0.6 mg/dL (0.2-1.0); C-Reactive Protein 33.3 mg/L (<3.00); Ferritin 2005.5 ng/mL (26-388); Potassium 4.1 mmol/L (3.5-5.1); Protein, Total 7.2 g/dL (6.4-8.2)
[2021-01-07] MEDS: FAMOTIDINE 20 MG TAB PO SCH ×2 (09:09→20:14)
[2021-01-07] MEDS: VITAMIN D 1000 UNIT TAB PO SCH (09:09)
[2021-01-07] MEDS: ASCORBIC ACID 500 MG TABLET PO SCH ×4 (09:10→20:14)
[2021-01-07] MEDS: THIAMINE HCL 100 MG TABLET PO SCH ×2 (09:10→20:14)
[2021-01-07] MEDS: ZINC SULFATE 220 MG CAP PO SCH (09:10)
[2021-01-07] MEDS: METHYLPREDNISOLONE 125 MG INJ IV SCH ×3 (09:10→20:15)
[2021-01-07] MEDS ORDERED: hydrOXYzine HCL 25 MG TAB PO PRN (15:19)
[2021-01-07] MEDS: RIVAROXABAN 10 MG TABLET PO SCH (16:23)
[2021-01-07] MEDS: MELATONIN 5 MG TABLET PO SCH (20:14)
[2021-01-07] MEDS: OXCARBAZEPINE 600 MG PO SCH (20:21)
[2021-01-08 06:30] LABS: Hematocrit 38.8 % (39.6-49.0); MPV 7.4 fL (7.6-11.3); RBC Red Blood Cell Count 4.41 M/uL (4.33-5.43)
[2021-01-08 07:19] LABS: Bilirubin Total 0.6 mg/dL (0.2-1.0); C-Reactive Protein 19.7 mg/L (<3.00); Ferritin 1905.9 ng/mL (26-388); Protein, Total 7.1 g/dL (6.4-8.2)
--- NOTE | 2021-01-08 07:36 | P.PN ---
Subjective Date of Service: 01/08/21 Primary Care Provider: none Chief Complaint: hypoxia, covid pneumonia Subjective: No new changes (feels about the same, no significant change overnight. eating ok, hasn't gotten out of bed much, voiding without issue) Review of Systems 10-point ROS is otherwise unremarkable Physical Examination - Vital Signs Temperature: 97.7 F Blood Pressure: 139/76 Pulse: 67 Respirations: 16 Pulse Ox (%): 92 Assessment & Plan Physician Review Additional Text: Physical exam GEN: Alert, oriented, NAD HEENT: Normal conjunctiva, sclera anicteric CV: Regular rate and rhythm, no edema Pulm: Nonlabored respiration on 15 LNC/ nonrebreather ABD: Soft, nontender, nondistended Neuro: Normal speech, normal affect, moves all extremities Problem List acute hypoxic respiratory failure secondary to covid-19 pneumonia HTN bipolar disorder CKD 3 Continue IV steroids, vitamin supplementation, oxygen supplementation Pulmonology consulted Inflammatory markers significantly elevated Patient tolerating diet renal function improved, now at baseline DVT prophylaxis CTA negative for PE restarted bipolar meds on 01/07 Code: Full Dispo: Anticipate DC home in ~5 days Time Spent Managing Pts Care (In Minutes): 35
--- NOTE | 2021-01-08 08:55 | RAD REPORT ---
EXAM DESCRIPTION: RAD - Chest Single View - 01/08/2021 5:31 am CLINICAL HISTORY: hypoxa, COVID Chest pain. COMPARISON: Chest Single View dated 01/05/2021; Chest Single View dated 08/12/2015; CHEST SINGLE VIEW dated 07/06/2015; CHEST SINGLE VIEW dated 02/27/2015 FINDINGS: Portable technique limits examination quality. Mild bilateral pulmonary opacities are present most compatible with underlying viral infection. The h eart is normal in size. Sternotomy wires are present.
[2021-01-08] MEDS: OXCARBAZEPINE 600 MG PO SCH ×2 (09:00→20:05)
[2021-01-08] MEDS: ZINC SULFATE 220 MG CAP PO SCH (09:06)
[2021-01-08] MEDS: VITAMIN D 1000 UNIT TAB PO SCH (09:06)
[2021-01-08] MEDS: METHYLPREDNISOLONE 125 MG INJ IV SCH ×3 (09:06→19:58)
[2021-01-08] MEDS: THIAMINE HCL 100 MG TABLET PO SCH ×2 (09:06→20:05)
[2021-01-08] MEDS: FAMOTIDINE 20 MG TAB PO SCH ×2 (09:06→19:58)
[2021-01-08] MEDS: ASCORBIC ACID 500 MG TABLET PO SCH ×4 (09:11→19:57)
[2021-01-08] MEDS: HYDROCODONE/CHLORPHEN 5 ML/OSYR PO PRN (11:59)
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
[2021-01-08] MEDS: RIVAROXABAN 10 MG TABLET PO SCH (16:37)
[2021-01-08] MEDS ORDERED: LANO/MINERAL OIL/PETRO 3.5 GM EACH EYE PRN (18:16)
[2021-01-08] MEDS: MELATONIN 5 MG TABLET PO SCH (19:57)
[2021-01-08] MEDS ORDERED: LORazepam 2 MG/ML VIAL IV ONE (23:37)
[2021-01-09] MEDS ORDERED: LORazepam 2 MG/ML VIAL ONE (00:04)
[2021-01-09] MEDS: MORPHINE 2 MG/ML SYR IV PRN ×2 (02:55→20:01)
[2021-01-09 03:59] LABS: Absolute Lymphocytes (CBC) 0.5 K/uL (0.7-4.9); Hematocrit 39.5 % (39.6-49.0); Lymphocytes % 2.9 % (15.3-44.8); MPV 7.6 fL (7.6-11.3); RBC Red Blood Cell Count 4.51 M/uL (4.33-5.43)
[2021-01-09 04:30] LABS: Albumin 3.1 g/dL (3.4-5.0); C-Reactive Protein 16.7 mg/L (<3.00); Ferritin 2275.6 ng/mL (26-388); Magnesium 2.8 mg/dL (1.8-2.4); Potassium 4.1 mmol/L (3.5-5.1); Protein, Total 7.4 g/dL (6.4-8.2)
[2021-01-09 04:56] LABS: Blood Morphology Comment NOT SEEN (NOT SEEN); Platelet Estimate ADEQ
[2021-01-09] MEDS: VITAMIN D 1000 UNIT TAB PO SCH (08:19)
[2021-01-09] MEDS: METHYLPREDNISOLONE 125 MG INJ IV SCH ×3 (08:20→20:01)
[2021-01-09] MEDS: THIAMINE HCL 100 MG TABLET PO SCH ×2 (08:21→20:01)
[2021-01-09] MEDS: ASCORBIC ACID 500 MG TABLET PO SCH ×3 (08:21→20:00)
[2021-01-09] MEDS: FAMOTIDINE 20 MG TAB PO SCH ×2 (08:21→20:00)
[2021-01-09] MEDS: ZINC SULFATE 220 MG CAP PO SCH (08:21)
[2021-01-09] MEDS: OXCARBAZEPINE 600 MG PO SCH ×2 (11:40→20:04)
[2021-01-09] MEDS: RIVAROXABAN 10 MG TABLET PO SCH (17:23)
[2021-01-09] MEDS ORDERED: HYDROCODONE/APAP 7.5/325 MG TAB PO PRN (18:05)
--- NOTE | 2021-01-09 18:05 | P.PN ---
Subjective Date of Service: 01/09/21 Primary Care Provider: none Chief Complaint: hypoxia, covid pneumonia Patient requiring CPAP this morning to maintain SaO2 greater than 90%. Physical Examination - Vital Signs Temperature: 97.8 F Blood Pressure: 149/82 Pulse: 79 Respirations: 22 Pulse Ox (%): 91 Assessment And Plan Physician Review Additional Text: Physical exam GEN: Alert, oriented, NAD HEENT: Normal conjunctiva, sclera anicteric CV: Regular rate and rhythm, no edema Pulm: Nonlabored respiration on 15 LNC/ nonrebreather ABD: Soft, nontender, nondistended Neuro: Normal speech, normal affect, moves all extremities Problem List acute hypoxic respiratory failure secondary to covid-19 pneumonia HTN bipolar disorder CKD 3 Continue IV steroids, vitamin supplementation, oxygen supplementation Pulmonology is following. CRP is improving Pharmacy to evaluate for Remdesivir therapy. renal function at baseline DVT prophylaxis Continue bipolar meds. Code: Full
[2021-01-09] MEDS: MELATONIN 5 MG TABLET PO SCH (20:00)
[2021-01-09] MEDS: TRAZODONE 50 MG TABLET PO PRN (22:24)
[2021-01-09] MEDS: LORazepam 2 MG/ML VIAL IV PRN (22:24)
[2021-01-09] MEDS ORDERED: HALOPERIDOL LACT 5 MG/ML INJ IV ONE (23:04)
[2021-01-10] MEDS: MORPHINE 2 MG/ML SYR IV PRN ×2 (01:11→23:30)
[2021-01-10 04:10] LABS: Absolute Lymphocytes (CBC) 0.5 K/uL (0.7-4.9); Basophils % 0.1 % (0-1.3); Hematocrit 39.3 % (39.6-49.0); Lymphocytes % 2.2 % (15.3-44.8); MPV 7.6 fL (7.6-11.3); RBC Red Blood Cell Count 4.48 M/uL (4.33-5.43)
[2021-01-10 04:13] LABS: Potassium 3.9 mmol/L (3.5-5.1)
[2021-01-10 04:57] LABS: Blood Morphology Comment NOT SEEN (NOT SEEN); Platelet Estimate ADEQ
[2021-01-10] MEDS ORDERED: NA CHLORIDE 0.9% 250 ML ONE (08:20)
[2021-01-10] MEDS: HYDRALAZINE HCL 20 MG/ML VIAL IV PRN (08:43)
[2021-01-10] MEDS: AZITHROMYCIN IV 500 MG in NA CHLORIDE 0.9% 250 ML IVPB SCH (08:44)
[2021-01-10] MEDS: VITAMIN D 1000 UNIT TAB PO SCH (08:45)
[2021-01-10] MEDS: METHYLPREDNISOLONE 125 MG INJ IV SCH ×3 (08:45→21:30)
[2021-01-10] MEDS: FAMOTIDINE 20 MG TAB PO SCH ×2 (08:45→21:30)
[2021-01-10] MEDS: THIAMINE HCL 100 MG TABLET PO SCH ×2 (08:45→21:30)
[2021-01-10] MEDS: ZINC SULFATE 220 MG CAP PO SCH (08:45)
[2021-01-10] MEDS: ASCORBIC ACID 500 MG TABLET PO SCH ×4 (08:45→21:30)
[2021-01-10] MEDS: OXCARBAZEPINE 600 MG PO SCH ×2 (08:46→21:00)
[2021-01-10] MEDS: CEFTRIAXONE/SWI 1gm 1 GM/10 ML SYR IV SCH (08:46)
[2021-01-10] MEDS: LACTOBACILLUS/ACIDOPHILUS TAB PO SCH (08:46)
[2021-01-10] MEDS: MAGNESIUM OXIDE 400 MG TAB PO SCH (08:46)
[2021-01-10] MEDS ORDERED: HYDRALAZINE HCL 20 MG/ML VIAL ONE (09:00)
[2021-01-10] MEDS ORDERED: HOME MED 1 EA UNK (Lactobacillus Acidophilus [Acidophilus Lactobacilli] Capsule) PO SCH (09:00)
[2021-01-10] MEDS ORDERED: CEFTRIAXONE 1 GM/NS 50 ML 1 GM/50 ML BAG IV SCH (09:00)
[2021-01-10] MEDS ORDERED: MAGNESIUM OXIDE 420 MG PO SCH (09:00)
--- NOTE | 2021-01-10 16:46 | P.PN ---
Subjective Date of Service: 01/10/21 Primary Care Provider: none Chief Complaint: hypoxia, covid pneumonia Patient got confused and agitated last night. Nursing staff reports poor sleep for a couple of days. He was also taking of the CPAP and currently own oxygen by nasal cannula and 100% non-rebreather. Physical Examination - Vital Signs Temperature: 98.8 F Blood Pressure: 191/85 Pulse: 112 Respirations: 24 Pulse Ox (%): 89 - Physical Exam General: Mild distress Neck: JVD not distended Respiratory: Other (Mildly labored breathing) Cardiovascular: No edema, Other (Tachycardia) Gastrointestinal: Soft and benign, Non-distended Musculoskeletal: No swelling Integumentary: No rashes Neurological: Other (No focal motor deficit.) - Studies Microbiology Data (last 24 hrs): 01/05/21 13:16 Blood - Blood Aerobic Blood Culture - Final No growth in 5 days. 01/05/21 13:16 Blood - Blood Anaerobic Blood Culture - Final No growth in 5 days. 01/05/21 13:37 Blood - Blood Aerobic Blood Culture - Final No growth in 5 days. 01/05/21 13:37 Blood - Blood Anaerobic Blood Culture - Final No growth in 5 days. Assessment And Plan Physician Review Additional Text: Physical exam GEN: Alert, oriented, NAD HEENT: Normal conjunctiva, sclera anicteric CV: Regular rate and rhythm, no edema Pulm: Nonlabored respiration on 15 LNC/ nonrebreather ABD: Soft, nontender, nondistended Neuro: Normal speech, normal affect, moves all extremities Problem List acute hypoxic respiratory failure secondary to covid-19 pneumonia HTN bipolar disorder CKD 3 Metabolic encephalopathy Metabolic encephalopathy secondary to delirium. Differential diagnosis include COVID encephalopathy versus steroid induced psychosis. Continue IV steroids, vitamin supplementation, oxygen supplementation Pulmonology is following. renal function at baseline DVT prophylaxis Continue bipolar meds. Haldol p.r.n. for psychosis and agitation. Frequent orientation. Encourage family visits. Repeat UA. Empiric antibiotics started given worsening leukocytosis. Titrate oxygen. Code: Full
[2021-01-10] MEDS: LORazepam 2 MG/ML VIAL IV PRN ×2 (17:05→23:04)
[2021-01-10] MEDS: RIVAROXABAN 10 MG TABLET PO SCH (17:12)
[2021-01-10] MEDS: TRAZODONE 50 MG TABLET PO PRN (21:30)
[2021-01-10] MEDS: MELATONIN 5 MG TABLET PO SCH (21:30)
[2021-01-11 02:38] LABS: Absolute Lymphocytes (CBC) 0.5 K/uL (0.7-4.9); Basophils % 0.2 % (0-1.3); Hematocrit 40.6 % (39.6-49.0); Lymphocytes % 2.5 % (15.3-44.8); MPV 6.9 fL (7.6-11.3); RBC Red Blood Cell Count 4.56 M/uL (4.33-5.43)
[2021-01-11 02:40] LABS: Albumin 3.1 g/dL (3.4-5.0); Bilirubin Total 1.4 mg/dL (0.2-1.0); Potassium 4.5 mmol/L (3.5-5.1); Protein, Total 7.4 g/dL (6.4-8.2)
[2021-01-11] MEDS: MORPHINE 2 MG/ML SYR IV PRN ×3 (03:30→18:12)
[2021-01-11] MEDS: LORazepam 2 MG/ML VIAL IV PRN ×3 (04:57→16:02)
[2021-01-11] MEDS: MAGNESIUM OXIDE 400 MG TAB PO SCH (09:00)
[2021-01-11] MEDS: METHYLPREDNISOLONE 125 MG INJ IV SCH (09:26)
[2021-01-11] MEDS: VITAMIN D 1000 UNIT TAB PO SCH (09:26)
[2021-01-11] MEDS: LACTOBACILLUS/ACIDOPHILUS TAB PO SCH (09:27)
[2021-01-11] MEDS: THIAMINE HCL 100 MG TABLET PO SCH ×2 (09:27→21:00)
[2021-01-11] MEDS: ZINC SULFATE 220 MG CAP PO SCH (09:27)
[2021-01-11] MEDS: FAMOTIDINE 20 MG TAB PO SCH ×2 (09:27→21:00)
[2021-01-11] MEDS: ASCORBIC ACID 500 MG TABLET PO SCH ×4 (09:27→21:00)
[2021-01-11] MEDS: CEFTRIAXONE/SWI 1gm 1 GM/10 ML SYR IV SCH (09:34)
[2021-01-11] MEDS: AZITHROMYCIN IV 500 MG in NA CHLORIDE 0.9% 250 ML IVPB SCH (09:34)
--- NOTE | 2021-01-11 11:09 | P.PN ---
Subjective Date of Service: 01/11/21 Primary Care Provider: none Chief Complaint: hypoxia, covid pneumonia Patient is very confused. Also noted he has tremors. On oxygen by nasal cannula and 100% non-rebreather. Physical Examination - Vital Signs Temperature: 98.1 F Blood Pressure: 139/88 Pulse: 115 Respirations: 32 Pulse Ox (%): 91 - Physical Exam General: Confused Neck: JVD not distended Respiratory: Other (Nonlabored breathing) Cardiovascular: Normal S1 S2, Other (Tachycardia) Gastrointestinal: Soft and benign, Non-distended Musculoskeletal: No swelling Integumentary: No rashes Neurological: Other (Confused, nonfocal) - Studies Microbiology Data (last 24 hrs): 01/05/21 13:16 Blood - Blood Aerobic Blood Culture - Final No growth in 5 days. 01/05/21 13:16 Blood - Blood Anaerobic Blood Culture - Final No growth in 5 days. 01/05/21 13:37 Blood - Blood Aerobic Blood Culture - Final No growth in 5 days. 01/05/21 13:37 Blood - Blood Anaerobic Blood Culture - Final No growth in 5 days. Assessment And Plan Physician Review Additional Text: Physical exam GEN: Alert, oriented, NAD HEENT: Normal conjunctiva, sclera anicteric CV: Regular rate and rhythm, no edema Pulm: Nonlabored respiration on 15 LNC/ nonrebreather ABD: Soft, nontender, nondistended Neuro: moves all extremities Problem List acute hypoxic respiratory failure secondary to covid-19 pneumonia HTN bipolar disorder CKD 3 Metabolic encephalopathy Metabolic encephalopathy secondary to delirium. Differential diagnosis include COVID encephalopathy versus steroid induced psychosis. Ativan IV p.r.n. for agitation Haldol as needed for psychosis Continue IV steroids, vitamin supplementation, oxygen supplementation Pulmonology is following. Renal function at baseline DVT prophylaxis Continue bipolar meds. Frequent orientation. Encourage family visits. Empiric antibiotics started given worsening leukocytosis. Titrate oxygen. Code: Full
[2021-01-11] MEDS: HALOPERIDOL LACT 5 MG/ML INJ IV PRN ×2 (11:21→18:13)
[2021-01-11] MEDS ORDERED: FUROSEMIDE 20 MG/ 2ML VIAL IV ONE (11:32)
--- NOTE | 2021-01-11 11:33 | P.PN ---
Subjective Date of Service: 01/11/21 Primary Care Provider: none Chief Complaint: hypoxia, covid pneumonia Worseining, x from floor confused agitated and hypoxic Review of Systems is unable to be obtained Physical Examination - Vital Signs Temperature: 98.1 F Blood Pressure: 139/88 Pulse: 115 Respirations: 32 Pulse Ox (%): 91 - Physical Exam General: Unresponsive - Studies Microbiology Data (last 24 hrs): 01/05/21 13:16 Blood - Blood Aerobic Blood Culture - Final No growth in 5 days. 01/05/21 13:16 Blood - Blood Anaerobic Blood Culture - Final No growth in 5 days. 01/05/21 13:37 Blood - Blood Aerobic Blood Culture - Final No growth in 5 days. 01/05/21 13:37 Blood - Blood Anaerobic Blood Culture - Final No growth in 5 days. Assessment & Plan - Problems (Diagnosis) (1) Pneumonia due to COVID-19 virus Current Visit: Yes Status: Acute Plan: Con worse delirious agitated LAbs and meds reviewed. Dry Dobhoff CXY and ABG
[2021-01-11] MEDS: OXCARBAZEPINE 600 MG PO SCH ×2 (12:26→21:00)
[2021-01-11] MEDS: ZIPRASIDONE MESYLA 20 MG/VIAL IM PRN ×2 (12:39→20:00)
[2021-01-11] MEDS ORDERED: WATER FOR INJ,STERILE 10 ML ONE (13:00)
[2021-01-11 14:05] LABS: Arterial Blood Carboxyhemoglob 1.1 % (0-1.5); Blood Gas Oxyhemoglobin 83.1 % (94-97); Blood O2 Saturation 84.7 % (92-98.5)
[2021-01-11] MEDS: RIVAROXABAN 10 MG TABLET PO SCH (16:00)
[2021-01-11 18:43] LABS: Urine Appearance CLEAR (Clear); Urine Bilirubin NEGATIVE (Negative); Urine Blood 1+ (Negative); Urine Color YELLOW (Yellow); Urine Glucose NEGATIVE (Negative); Urine Protein NEGATIVE (Negative)
[2021-01-11 19:17] LABS: Urine Bacteria <20 /HPF (NONE SEEN)
[2021-01-11 19:18] LABS: Urine Mucus 1+ /HPF (NONE SEEN)
[2021-01-11] MEDS: METHYLPREDNISOLONE 40 MG INJ IV SCH (20:00)
[2021-01-11] MEDS: WATER FOR INJ,STERILE 10 ML IM PRN (20:01)
[2021-01-11] MEDS: MELATONIN 5 MG TABLET PO SCH (21:00)
[2021-01-12] MEDS: MORPHINE 2 MG/ML SYR IV PRN ×5 (00:14→20:46)
[2021-01-12] MEDS: WATER FOR INJ,STERILE 10 ML IM PRN ×3 (02:37→11:52)
[2021-01-12] MEDS: ZIPRASIDONE MESYLA 20 MG/VIAL IM PRN ×2 (02:37→08:59)
[2021-01-12] MEDS: HALOPERIDOL LACT 5 MG/ML INJ IV PRN ×4 (03:15→19:54)
[2021-01-12 05:11] LABS: Absolute Lymphocytes (CBC) 0.4 K/uL (0.7-4.9); Basophils % 0.1 % (0-1.3); Hematocrit 43.9 % (39.6-49.0); Lymphocytes % 2.2 % (15.3-44.8); MPV 7.2 fL (7.6-11.3); RBC Red Blood Cell Count 4.93 M/uL (4.33-5.43)
[2021-01-12 05:42] LABS: Ferritin 3319.2 ng/mL (26-388); Phosphorus 3.9 mg/dL (2.5-4.9); Potassium 4.2 mmol/L (3.5-5.1)
[2021-01-12] MEDS: LORazepam 2 MG/ML VIAL IV PRN ×4 (06:19→19:54)
--- NOTE | 2021-01-12 07:31 | RAD REPORT ---
EXAM DESCRIPTION: Lacie Single View01/12/2021 6:03 am CLINICAL HISTORY: Chest pain COMPARISON: January 08, 2021 FINDINGS: No significant change in mild to moderate bilateral pulmonary opacities. The heart is norm al size. Postsurgical changes involve the chest. Questionable small amount of pneumomediastinum
[2021-01-12] MEDS: METHYLPREDNISOLONE 40 MG INJ IV SCH ×2 (07:36→21:08)
[2021-01-12] MEDS: CEFTRIAXONE/SWI 1gm 1 GM/10 ML SYR IV SCH (07:37)
[2021-01-12] MEDS: OXCARBAZEPINE 600 MG PO SCH ×2 (09:00→21:00)
[2021-01-12] MEDS: VITAMIN D 1000 UNIT TAB PO SCH (09:00)
[2021-01-12] MEDS: ZINC SULFATE 220 MG CAP PO SCH (09:00)
[2021-01-12] MEDS: ASCORBIC ACID 500 MG TABLET PO SCH (09:00)
[2021-01-12] MEDS: FAMOTIDINE 20 MG TAB PO SCH (09:00)
[2021-01-12] MEDS: MAGNESIUM OXIDE 400 MG TAB PO SCH (09:00)
[2021-01-12] MEDS: THIAMINE HCL 100 MG TABLET PO SCH (09:00)
[2021-01-12] MEDS: LACTOBACILLUS/ACIDOPHILUS TAB PO SCH (09:00)
[2021-01-12] MEDS ORDERED: WATER FOR INJ,STERILE 10 ML ONE (09:22)
--- NOTE | 2021-01-12 10:49 | P.PN ---
Subjective Date of Service: 01/12/21 Primary Care Provider: none Chief Complaint: hypoxia, covid pneumonia NC unable to insert Dobhoff, Agitated Review of Systems is unable to be obtained Physical Examination - Vital Signs Temperature: 97.2 F Blood Pressure: 139/91 Pulse: 118 Respirations: 30 Pulse Ox (%): 96 - Physical Exam General: Delirious, Unresponsive Assessment & Plan - Problems (Diagnosis) (1) Pneumonia due to COVID-19 virus Current Visit: Yes Status: Acute Plan: Delirious renal function worse hypernatremia,Start D5 Water/ Bipolar agitated richard Ge0don Start TPN/ sats variable/Barctinib
--- NOTE | 2021-01-12 10:49 | P.PN ---
Subjective Date of Service: 01/12/21 Primary Care Provider: none Chief Complaint: hypoxia, covid pneumonia Patient remain confused and agitated. He is currently put on BiPAP and according to the nurse patient has been taking of oxygen by nasal cannula and non-rebreather and the BiPAP is supposed to help keep oxygen on. Physical Examination - Vital Signs Temperature: 97.2 F Blood Pressure: 139/91 Pulse: 118 Respirations: 30 Pulse Ox (%): 96 Assessment And Plan Physician Review Additional Text: Physical exam GEN: Alert, oriented, NAD HEENT: Normal conjunctiva, sclera anicteric CV: Regular rate and rhythm, no edema Pulm: Nonlabored respiration on BIPAP ABD: Soft, nontender, nondistended Neuro: moves all extremities. Confused. Problem List acute hypoxic respiratory failure secondary to covid-19 pneumonia HTN bipolar disorder CKD 3 Metabolic encephalopathy Metabolic encephalopathy secondary to delirium. Likely secondary to COVID encephalopathy. Ativan IV p.r.n. for agitation Haldol as needed for psychosis. Chest x-ray is unchanged from previous one. Continue IV steroids, vitamin supplementation, oxygen supplementation Pulmonology is following. Renal function at baseline DVT prophylaxis Continue bipolar meds. Frequent orientation. Encourage family visits. Continue Empiric antibiotics started given leukocytosis. Titrate oxygen. Code: Full
[2021-01-12] MEDS: ZIPRASIDONE MESYLA 20 MG/VIAL IM SCH ×3 (11:52→23:40)
[2021-01-12] MEDS: D5W 1,000 ML IV SCH (11:57)
[2021-01-12] MEDS ORDERED: BARICITINIB 2 MG TABLET PO SCH (12:00)
[2021-01-12] MEDS ORDERED: NA CHLORIDE 0.9% IV ONE (15:00)
[2021-01-12] MEDS ORDERED: TOCILIZUMAB IV ONE (15:00)
[2021-01-12] MEDS ORDERED: GLUCAGON 1 MG/VIAL IM PRN (16:35)
[2021-01-12] MEDS ORDERED: D50W 25 GM/50 ML SYRINGE IV PRN (16:35)
[2021-01-12] MEDS: INSULIN -REGULAR HUMAN 50 UNIT/0.5 ML ML SQ SCH (17:40)
[2021-01-12] MEDS: FAMOTIDINE 20 MG/2 ML VIAL IV SCH (21:08)
[2021-01-12] MEDS: THIAMINE 200 MG/2 ML INJ IVP SCH (21:08)
[2021-01-12] MEDS: ENOXAPARIN 40 MG/0.4 ML SQ SCH (21:09)
--- NOTE | 2021-01-12 21:46 | RAD REPORT ---
EXAM DESCRIPTION: RAD - Chest Single View - 01/12/2021 9:28 pm CLINICAL HISTORY: PICC placement COMPARISON: Chest Single View dated 01/12/2021; Chest Single View dated 01/08/2021; Chest Single View dated 01/05/2021; Chest Single View dated 08/12/2015; Abdomen Single View dated 01/12/2021; Chest For Pe Angio dated 01/05/2021 FINDINGS: Right subclavian approach PICC tip terminates overlying the SVC. The weighted feeding tube tip terminates in the right lower lobe bronchus. Sternotomy. Mild diffuse hazy opacities bilaterally . These are unchanged. No fractures seen. IMPRESSION: Right subclavian approach PICC with tip overlying the SVC. The weighted feeding tube ter minates in the right right lower lobe and needs to be repositioned. Lungs are similar in appearance.
--- NOTE | 2021-01-12 21:47 | RAD REPORT ---
EXAM DESCRIPTION: RAD - Abdomen Single View - 01/12/2021 9:28 pm CLINICAL HISTORY: dobhoff placement/feeding tube COMPARISON: CT ABDOMEN PELVIS WO CONTRAST dated 06/08/2015 FINDINGS: Bowel gas pattern is nonobstructive. The weighted feeding tube tip terminates in the right lower lung. Sternotomy. Surgical clips in the right upper quadrant. IMPRESSION: Weighted feeding tube in the right lower lobe. This needs to be repositioned.
[2021-01-13] MEDS: HALOPERIDOL LACT 5 MG/ML INJ IV PRN ×4 (00:50→23:02)
[2021-01-13] MEDS: INSULIN -REGULAR HUMAN 50 UNIT/0.5 ML ML SQ SCH ×4 (00:50→17:22)
[2021-01-13] MEDS: MORPHINE 2 MG/ML SYR IV PRN ×5 (00:51→23:21)
[2021-01-13] MEDS: LORazepam 2 MG/ML VIAL IV PRN ×4 (00:51→23:21)
[2021-01-13] MEDS: D5W 1,000 ML IV SCH ×3 (01:16→14:16)
[2021-01-13 05:29] VITALS: BMI 25.2
[2021-01-13 06:02] LABS: Absolute Lymphocytes (CBC) 0.3 K/uL (0.7-4.9); Basophils % 0.1 % (0-1.3); Hematocrit 44.2 % (39.6-49.0); Lymphocytes % 1.7 % (15.3-44.8); MPV 7.2 fL (7.6-11.3); RBC Red Blood Cell Count 4.95 M/uL (4.33-5.43)
[2021-01-13] MEDS: ZIPRASIDONE MESYLA 20 MG/VIAL IM SCH ×3 (06:03→16:59)
[2021-01-13 06:31] LABS: C-Reactive Protein 60.1 mg/L (<3.00); Potassium 4.3 mmol/L (3.5-5.1)
[2021-01-13] MEDS: CEFTRIAXONE 1 GM/NS 50 ML 1 GM/50 ML BAG IV SCH (08:03)
[2021-01-13] MEDS: THIAMINE 200 MG/2 ML INJ IVP SCH ×2 (08:04→20:00)
[2021-01-13] MEDS: METHYLPREDNISOLONE 40 MG INJ IV SCH ×2 (08:05→20:00)
[2021-01-13] MEDS: ENOXAPARIN 40 MG/0.4 ML SQ SCH ×2 (08:06→20:01)
[2021-01-13] MEDS: OXCARBAZEPINE 600 MG PO SCH ×2 (08:06→20:01)
[2021-01-13] MEDS: FAMOTIDINE 20 MG/2 ML VIAL IV SCH ×2 (09:02→20:00)
--- NOTE | 2021-01-13 09:46 | RAD REPORT ---
EXAM DESCRIPTION: RAD - Abdomen 1 View (KUB) - 01/13/2021 9:30 am CLINICAL HISTORY: dobhoff placement Pain COMPARISON: ABDOMEN 1 VIEW KUB dated 03/15/2014 FINDINGS: Enteric tube is barely visible with the very top of the film of may be coiled within the m outh. Advise removal of the enteric tube.
--- NOTE | 2021-01-13 10:26 | RAD REPORT ---
EXAM DESCRIPTION: RAD - Chest Single View - 01/13/2021 7:00 am CLINICAL HISTORY: pneumonia Chest pain. COMPARISON: Chest Single View dated 01/12/2021; Chest Single View dated 01/12/2021; Chest Single View dated 01/08/2021; Chest Single View dated 01/05/2021 FINDINGS: Portable technique limits examination quality. Mild bilateral interstitial lung opacities are present likely representing mild pulmonary edema or vi ral infection. The heart is normal in size. Sternotomy wires are present.Right PICC line has tip in t he SVC.
--- NOTE | 2021-01-13 11:39 | P.PN ---
Subjective Date of Service: 01/13/21 Primary Care Provider: none Chief Complaint: hypoxia, covid pneumonia No change patient is still confused agitated nurse will try to insert a Dobbhoff again Review of Systems is unable to be obtained Physical Examination - Vital Signs Temperature: 97.3 F Blood Pressure: 114/85 Pulse: 98 Respirations: 16 Pulse Ox (%): 100 - Physical Exam General: Delirious, Unresponsive Assessment & Plan - Problems (Diagnosis) (1) Pneumonia due to COVID-19 virus Current Visit: Yes Status: Acute Plan: Patient is 70 years of age the patient is 70 years of age admitted with coronavirus pneumonia continues to remain delirious no change in patient's renal function no change in patient's renal function or hyponatremia white count is declining white count is declining titrate sat to 90% titrate sat to 90%
--- NOTE | 2021-01-13 13:38 | P.PN ---
Subjective Date of Service: 01/13/21 Primary Care Provider: none Chief Complaint: hypoxia, covid pneumonia Patient remain confused and agitated. He is put on a trial of high-flow oxygen. Physical Examination - Vital Signs Temperature: 97.9 F Blood Pressure: 133/105 Pulse: 132 Respirations: 32 Pulse Ox (%): 99 Assessment And Plan Physician Review Additional Text: Physical exam GEN: Confused. HEENT: Normal conjunctiva, sclera anicteric CV: Regular rate and rhythm, no edema Pulm: Nonlabored respiration on HFNC ABD: Soft, nontender, nondistended Neuro: moves all extremities. Confused. Problem List acute hypoxic respiratory failure secondary to covid-19 pneumonia HTN bipolar disorder CKD 3 Metabolic encephalopathy Metabolic encephalopathy likely secondary to COVID encephalopathy. Ativan IV p.r.n. for agitation Haldol as needed for psychosis. Patient is also on Geodon. Chest x-ray is unchanged from previous one. Continue IV steroids, vitamin supplementation, oxygen supplementation. Patient given Actemra yesterday. PICC line is in for TPN if needed. Attempt to insert a NG tube by nursing staff has been unsuccessful. Pulmonology is following. Renal function at baseline DVT prophylaxis Continue bipolar meds. Frequent orientation. Continue Empiric antibiotics started given leukocytosis. Titrate oxygen. Code: Full
[2021-01-14] MEDS: D5W 1,000 ML IV SCH (00:31)
[2021-01-14] MEDS: LORazepam 2 MG/ML VIAL IV PRN ×3 (03:47→20:03)
[2021-01-14] MEDS: MORPHINE 2 MG/ML SYR IV PRN ×3 (03:47→23:28)
[2021-01-14] MEDS: HALOPERIDOL LACT 5 MG/ML INJ IV PRN ×2 (03:47→09:23)
[2021-01-14 05:40] LABS: Absolute Lymphocytes (CBC) 0.4 K/uL (0.7-4.9); Basophils % 0.1 % (0-1.3); Hematocrit 46.1 % (39.6-49.0); Lymphocytes % 1.9 % (15.3-44.8); MPV 7.8 fL (7.6-11.3); RBC Red Blood Cell Count 5.13 M/uL (4.33-5.43)
[2021-01-14] MEDS: INSULIN -REGULAR HUMAN 50 UNIT/0.5 ML ML SQ SCH ×4 (06:03→17:58)
[2021-01-14 06:04] LABS: C-Reactive Protein 19.2 mg/L (<3.00); Potassium 4.3 mmol/L (3.5-5.1)
[2021-01-14] MEDS: ZIPRASIDONE MESYLA 20 MG/VIAL IM SCH ×5 (06:04→20:45)
[2021-01-14 06:28] LABS: Blood Morphology Comment NOT SEEN (NOT SEEN); Platelet Estimate ADEQ; Toxic Granulation 1+
--- NOTE | 2021-01-14 07:44 | RAD REPORT ---
EXAM DESCRIPTION: RAD - Chest Single View - 01/14/2021 6:17 am CLINICAL HISTORY: pneumonia COMPARISON: January 13 TECHNIQUE: AP portable chest image was obtained 01/14/2021 6:17 am . FINDINGS: Lung volumes are low. Lung parenchymal opacification has not changed. No significant failu re or volume overload findings. PICC line position is stable. Heart and vasculature are normal. No measurable pleural effusion and no pneumothorax. No acute bony abnormality seen. No acute aortic findings suspected. IMPRESSION: Stable portable chest compared to January 13.
[2021-01-14] MEDS: FAMOTIDINE 20 MG/2 ML VIAL IV SCH ×2 (08:42→20:04)
[2021-01-14] MEDS: METHYLPREDNISOLONE 40 MG INJ IV SCH ×2 (08:42→20:04)
[2021-01-14] MEDS: THIAMINE 200 MG/2 ML INJ IVP SCH ×2 (08:44→20:04)
[2021-01-14] MEDS: OXCARBAZEPINE 600 MG PO SCH ×2 (08:44→19:19)
[2021-01-14] MEDS: ENOXAPARIN 40 MG/0.4 ML SQ SCH ×2 (08:44→20:03)
[2021-01-14 09:44] LABS: Blood Gas Oxyhemoglobin 82.9 % (94-97); Blood O2 Saturation 84.6 % (92-98.5)
[2021-01-14] MEDS ORDERED: propofoL 500 MG/50 ML ML IV ONE (10:51)
[2021-01-14] MEDS ORDERED: SUCCINYLCHOLINE 20 MG/ML (10 ML) IV ONE (10:51)
[2021-01-14 11:31] LABS: Blood Gas Oxyhemoglobin 90.6 % (94-97); Blood O2 Saturation 92.5 % (92-98.5)
--- NOTE | 2021-01-14 11:32 | RAD REPORT ---
EXAM DESCRIPTION: RAD - Chest Single View - 01/14/2021 11:26 am CLINICAL HISTORY: endotrachial tube placement COMPARISON: January 14 TECHNIQUE: AP portable chest image was obtained 01/14/2021 11:26 am . FINDINGS: Endotracheal tube has been placed since prior imaging. Tip is mid aortic arch level 3.5 cm above the gilson, well positioned. Bilateral interstitial and alveolar opacities are present in each lung base. Lung volumes improved si nce earlier day examination. Heart and vasculature are normal. No measurable pleural effusion and no pneumothorax. No acute bony abnormality seen. No acute aortic findings suspected. IMPRESSION: Endotracheal tube placement in good position mid aortic arch level. This is 3.5 cm above the gilson. No change to the primarily bibasilar lung parenchymal opacification. No progressive lung finding sinc e examination earlier in the day.
[2021-01-14] MEDS ORDERED: FENTANYL CITR 100 MCG/2 ML IV PRN (12:21)
[2021-01-14] MEDS ORDERED: propofoL 1,000 MG/100 ML VIAL IV PRN (12:21)
[2021-01-14] MEDS ORDERED: HALOPERIDOL LACT 5 MG/ML INJ IV PRN (12:21)
[2021-01-14] MEDS ORDERED: NA CHLORIDE 0.9% 250 ML IV PRN (12:21)
[2021-01-14] MEDS: CEFTRIAXONE 1 GM/NS 50 ML 1 GM/50 ML BAG IV SCH (13:06)
[2021-01-14] MEDS: propofoL 500 MG/50 ML ML IV PRN ×4 (13:10→21:02)
--- NOTE | 2021-01-14 13:19 | P.PN ---
Subjective Date of Service: 01/14/21 Primary Care Provider: none Chief Complaint: hypoxia, covid pneumonia Patient remain confused and agitated. His arterial blood gas showed significant hypoxemia on BIPAP Patient intubated and put on mechanical ventilation. Physical Examination - Vital Signs Temperature: 98.3 F Blood Pressure: 136/83 Pulse: 120 Respirations: 25 Pulse Ox (%): 86 Assessment And Plan Physician Review Additional Text: Physical exam GEN: Confused. HEENT: Intubated and on mechanical ventilation. CV: Regular rate and rhythm, no edema Pulm: Mildly labored breathing. ABD: Soft, nontender, nondistended Neuro: moves all extremities. Unresponsive Problem List acute hypoxic respiratory failure secondary to covid-19 pneumonia HTN bipolar disorder CKD 3 Metabolic encephalopathy Metabolic encephalopathy likely secondary to COVID encephalopathy. Patient intubated and start on mechanical ventilation. On sedation Continue IV steroids. Status post Actemra.. PICC line is in for TPN if needed. Attempt to insert a NG tube by nursing staff has been unsuccessful. Start TPN Pulmonology is following. Serum creatinine trended up a bit. Monitor renal function. DVT prophylaxis Continue bipolar meds. Frequent orientation. Leukocytosis is worse. Continue Empiric antibiotics. Code: Full
[2021-01-14] MEDS ORDERED: AA 5%/D20W/ELECTROLYTES-TPN 2,000 ML, Lipids 20% 250 ML with MULTIVITAMINS INJ 10 ML IV SCH ×3 (17:00)
[2021-01-14] MEDS: MIDAZOLAM HCL 2 MG/2 ML INJ IV PRN ×2 (20:03→22:59)
[2021-01-14 20:38] VITALS: O2SAT 95
[2021-01-14] MEDS ORDERED: MORPHINE 4 MG/ML SYR IV PRN (23:59)
[2021-01-15 00:22] VITALS: TEMP 97.5
[2021-01-15] MEDS: INSULIN -REGULAR HUMAN 50 UNIT/0.5 ML ML SQ SCH (00:28)
[2021-01-15] MEDS: HYDRALAZINE HCL 20 MG/ML VIAL IV PRN (01:07)
[2021-01-15] MEDS: propofoL 500 MG/50 ML ML IV PRN (01:07)
[2021-01-15 03:07] VITALS: BP 143/57
[2021-01-15] MEDS ORDERED: EPINEPHrine 1 MG/10 ML SYR IV ONE (04:20)
[2021-01-15] MEDS ORDERED: ATROPINE SULF 1 MG/10 ML SYR IV ONE (04:20)
[2021-01-15] MEDS ORDERED: D50W 25 GM/50 ML SYRINGE IV ONE (04:20)
[2021-01-15] MEDS ORDERED: AMIODARONE HCL 150 MG/3 ML INJ IV ONE (04:20)
[2021-01-15] MEDS ORDERED: Magnesium Sulfate 2gm IVPB 2 G/50 ML BAG IV ONE (04:23)
[2021-01-15] MEDS ORDERED: ATROPINE SULFATE 1 MG/ML INJ ONE (04:28)
[2021-01-15] MEDS ORDERED: NOREPINEPHRINE 4mg/D5W 250mL 4 MG/250 ML BAG IV ONE (04:28)
[2021-01-15] MEDS ORDERED: EPINEPHrine 1 MG/10 ML SYR ONE (04:43)
--- NOTE | 2021-01-15 06:11 | RAD REPORT ---
EXAM DESCRIPTION: RAD - Chest Single View - 01/15/2021 5:33 am CLINICAL HISTORY: Respiratory Failure COMPARISON: January 14 TECHNIQUE: AP portable chest image was obtained 01/15/2021 5:33 am . FINDINGS: Endotracheal tube tip is top of the aortic arch 3.5 cm above the gilson. Right-side PICC l ine remains in good position unchanged. Patient has developed significant subcutaneous emphysema and pneumomediastinum is also evident. Small bilateral apical pneumothoraces are present. No new lung parenchymal process seen. Heart and vasculature are normal. No enlarging pleural effusion . IMPRESSION: ET tube is in good position 3.5 cm above the gilson. Small bilateral apical pneumothoraces are identifiable. Interval development of significant subcutaneous emphysema as well as pneumomediastinum.
--- NOTE | 2021-01-15 18:37 | P.DS ---
Admission Date: 01/05/21 Discharge Date: 01/15/21 Primary Care Provider: none Disposition: Reason for Admission: hypoxia, covid pneumonia Brief History of Present Illness: 70 y/o M with HTN, bipolar disorder, who was recently diagnosed with covid in the ER on 01/01. He presented with worsening shortness of breath and cough. Found to be hypoxic in the ER, 88% on 6L NC. He c/o fevers, nausea. Denies any chest pain, palpitations. He is not vaccinated. Chest x-ray demonstrated bilateral infiltrates consistent with COVID pneumonia. Patient hospitalized for further management. Hospital Course: acute hypoxic respiratory failure secondary to covid-19 pneumonia HTN bipolar disorder CKD 3 Metabolic encephalopathy. Patient admitted to the medical floor and started on treatment for COVID pneumonia including IV steroid and vitamin supplementation. He became confused and diagnosed with COVID encephalopathy. Patient condition worsened and was transferred to the ICU where he required more oxygen. He was put on BiPAP and high-flow oxygen and subsequently intubated and put on mechanical ventilation. He was put on antibiotics for possible secondary bacterial infection. Patient clinical condition worsened and he within 24 hrs of intubation. Vital Signs/Physical Exam: Temp Pulse Resp BP Pulse Ox 97.5 F 115 H 18 143/57 H 95 01/15/21 00:00 01/15/21 03:00 01/15/21 03:00 01/15/21 03:00 01/15/21 03:00 Laboratory Data at Discharge: WBC Cancelled 01/15/21 05:00 Hgb Cancelled 01/15/21 05:00 Hct Cancelled 01/15/21 05:00 Plt Count Cancelled 01/15/21 05:00 PT 13.0 SECONDS (9.5-12.5) H 01/05/21 13:36 INR 1.13 01/05/21 13:36 Sodium Cancelled 01/15/21 05:00 Potassium Cancelled 01/15/21 05:00 BUN Cancelled 01/15/21 05:00 Creatinine Cancelled 01/15/21 05:00 Glucose Cancelled 01/15/21 05:00 Phosphorus Cancelled 01/15/21 05:00 Magnesium Cancelled 01/15/21 05:00 Total Bilirubin Cancelled 01/15/21 05:00 AST Cancelled 01/15/21 05:00 ALT Cancelled 01/15/21 05:00 Alkaline Phosphatase Cancelled 01/15/21 05:00 Triglycerides 159 mg/dL (<150) H 01/06/21 03:24 Cholesterol 136 mg/dL (<200) 01/06/21 03:24 HDL Cholesterol 33 mg/dL (40-60) L 01/06/21 03:24 Cholesterol/HDL Ratio 4.12 01/06/21 03:24 Home Medications: Lurasidone HCl [Latuda] 80 mg PO DAILY 01/06/21 Ascorbic Acid [C-500] 500 mg PO DAILY 01/07/21 Hydrocodone 7.5/APAP 325 [Glidden 7.5/325 mg*] 1 tab PO Q6HR PRN 01/07/21 Lactobacillus Acidophilus [Acidophilus Lactobacilli] 1 each PO DAILY 01/07/21 Lisinopril [Zestril] 5 mg PO DAILY 01/07/21 Magnesium Oxide 420 mg PO DAILY 01/07/21 OXcarbazepine [Oxcarbazepine] 300 mg PO BID 01/07/21 Omeprazole 20 mg PO DAILY 01/07/21 Trazodone HCl 50 mg PO BEDTIME PRN PRN 01/07/21 Vitamin B Complex [B Complex] 1 each PO DAILY 01/07/21 hydrOXYzine HCL [Atarax] 25 mg PO BID PRN 01/07/21 Followup: NONE,NONE [Primary Care Provider] -
== END 2021-01-15 04:21 | disposition expired | DRG 208 ==
LOC: ER 12:56 → ERHOLD 16:44 → 4TH 18:04 → 3RD-ICU 01-10 21:09
PROVIDERS: ADMIT Hospitalist; ATTEND Internal Medicine
PROC: 5A09457 Assistance with Respiratory Ventilation, 24-96 Consecutive Hours, Continuous Positive Airway Pressure (ICD-10-PCS; 2021-01-10)
PROC: 02HV33Z Insertion of Infusion Device into Superior Vena Cava, Percutaneous Approach (ICD-10-PCS; 2021-01-12)
PROC: 5A1935Z Respiratory Ventilation, Less than 24 Consecutive Hours (ICD-10-PCS; principal; 2021-01-14)
PROC: 0BH17EZ Insertion of Endotracheal Airway into Trachea, Via Natural or Artificial Opening (ICD-10-PCS; 2021-01-14)
DX: U07.1 COVID-19 (principal); J12.82 Pneumonia due to coronavirus disease 2019; J96.01 Acute respiratory failure with hypoxia; G93.41 Metabolic encephalopathy; F31.9 Bipolar disorder, unspecified; I12.9 Hypertensive chronic kidney disease with stage 1 through stage 4 chronic kidney disease, or unspecified chronic kidney disease; N18.30 Chronic kidney disease, stage 3 unspecified; R41.0 Disorientation, unspecified; Z87.891 Personal history of nicotine dependence; Z78.1 Physical restraint status
CPT/HCPCS: 36415; 36569; 71045; 71275; 74018; 80048; 80053; 80061; 80076; 81001; 81003; 81015; 82728; 82805; 82947; 83605; 83735; 83880; 84100; 84145; 84439; 84443; 84484; 85025; 85027; 85379; 85610; 86140; 87040; 93005; 94002; 94003; 94660; 99285; J0171; J0282; J0330; J0360; J0456; J0461; J0696; J1630; J1650; J1940; J2250; J2270; J2920; J2930; J3010; J3262; J3411; J3475; J3486; J7050; Q9967; U0003